=== PATIENT | female | born 1970 | race Caucasian/White ===

== ENCOUNTER → 2016-03-22 | Outpatient (CLI) | payer OTHER ==
--- NOTE | 2016-03-22 16:39 | DX ---
Thoracic Spine, 3 Views History: Neuropathic pain. Findings: Upper thoracic kyphosis is slightly accentuated. Intervertebral disk shows mild loss of hei ght at T5-T6. Scattered osteophytes are quite small. No paraspinous masses are found. No compression fracture. No scoliosis. Thoracic spinal segmentation is standard, with 12 pairs of ribs. Impression: No source of neuropathic pain is identified.
== END ==
LOC: BMCIMAGING 15:57
PROVIDERS: ATTEND Internal Medicine
DX: M79.2 Neuralgia and neuritis, unspecified (principal)

== ENCOUNTER → 2016-12-18 | Outpatient (CLI) | payer OTHER | LOC: BMCIMAGING 08:38 | PROVIDERS: ATTEND Internal Medicine | DX: Z12.31 Encounter for screening mammogram for malignant neoplasm of breast (principal) | CPT/HCPCS: G0202 ==

== ENCOUNTER → 2016-12-24 | Outpatient (CLI) | payer OTHER | LOC: BMCIMAGING 10:19 | PROVIDERS: ATTEND Internal Medicine | DX: Z12.39 Encounter for other screening for malignant neoplasm of breast (principal); N64.89 Other specified disorders of breast | CPT/HCPCS: G0204 ==

== ENCOUNTER → 2018-04-09 | Outpatient (CLI) | payer OTHER | LOC: FIMAGING 16:07 | PROVIDERS: ATTEND Internal Medicine | DX: Z12.31 Encounter for screening mammogram for malignant neoplasm of breast (principal) ==